=== PATIENT | male | born 1940 | race Caucasian/White ===

== ENCOUNTER 2016-11-18 20:28 | Emergency (ER) | payer OTHER ==
[2016-11-18 22:08] LABS: MANUAL DIFF NEEDED? NO
[2016-11-18 22:25] LABS: AGAP 13; ALBUMIN 3.6 g/dL (3.5-5.0); ALKALINE PHOSPHATASE 78 U/L (32-122); BUN 13 mg/dL (8-22); CALCIUM 9.1 mg/dL (8.8-10.2); CHLORIDE 103 mmol/L (98-107); CK PROFILE 66 U/L (24-204); COSMO 281; GOT 19 U/L (10-34); GPT 23 U/L (10-44); POTASSIUM 4.1 mmol/L (3.5-5.1); SODIUM 141 mmol/L (136-145); TCO2 25 mmol/L (25-35); TOTAL BILIRUBIN 0.51 mg/dL (0.20-1.00); TOTAL PROTEIN 6.3 g/dL (6.3-8.3)
[2016-11-18 22:31] LABS: BASO% 0.5 % (0.0-0.8); EOS# 0.15 X1000 (0.0-0.7); EOS% 1.9 % (0.0-10.0); HEMATOCRIT 46.6 % (42.0-52.0); HEMOGLOBIN 15.8 g/dL (14.0-18.0); LYMPH# 1.76 X1000 (1.2-3.4); LYMPH% 22.5 % (20.5-51.1); MCHC 33.9 g/dL (33-37); MCV 88.4 FL (81-99); MONO% 10.2 % (1.7-9.3); MPV 10.4 FL (7.4-10.4); NEUT% 64.9 % (42.2-75.2); PLT 214 X1000 (130-400); RBC 5.27 XMIL (4.7-6.1)
--- NOTE | 2016-11-18 22:32 | PROVIDER DOCUMENTATION ---
HPI-Syncope/Dizziness - General Source: patient - History of Present Illness-Syncope/Dizzy Onset/Duration: reports: this evening Timing: reports: gone now Loss of Consciousness: no loss of consciousness Location of injury. (If syncope resulted in an injury.): reports: none Current Symptoms: reports: none/feels normal Recently Seen Here or By Another Healthcare Provider: No - Dizziness Severity in ED: reports: mild Dizziness Related Current/Associated Symptoms: reports: dizzy, other (shortness of breath) Any recent trauma/injury?: reports: none Patient usually:: reports: walks without assistance <Sobeida Brown - Last Filed: 11/18/16 23:38> <Baldemar Pompa - Last Filed: 11/18/16 23:53> - General Chief Complaint: Dizziness Stated Complaint: DIZZY, HEART RACING Time Seen by Provider: 11/18/16 21:00 Allergies/Adverse Reactions: Patient Allergies Allergy/AdvReac Type Severity Reaction Status Date / Time No Known Allergies Allergy Verified 11/18/16 21:21 Home Medications: Home Medication List Medication Instructions Recorded Confirmed Last Taken Type Aspirin 81 mg PO DAILY 07/20/16 11/18/16 11/18/16 History Metoprolol [Lopressor] 50 mg PO DAILY 07/20/16 11/18/16 11/18/16 History Rivaroxaban [Xarelto] 20 mg PO WSUPPER #30 tablet 07/21/16 11/18/16 11/18/16 Rx Folic Acid 1 mg PO DAILY #30 tablet 07/22/16 11/18/16 11/18/16 Rx - History of Present Illness-Syncope/Dizzy Nature of Presenting Problem: 76 year old M presents to the ED with a cc of dizziness, short of breath, and feeling flushed. PT states that he has a hx of blood clots moving from his legs to his lungs. PT states that tonight felt similar. PT states that he is taking Xarelto 20mg daily. (Sobeida Brown) Review of Systems - Adult - REVIEW OF SYSTEMS - ADULT Constitutional: denies: chills, fever Eyes: reports: no symptoms reported Ears, Nose, Mouth & Throat: reports: no symptoms reported Cardiovascular: denies: chest pain, palpitations Respiratory: reports: shortness of breath. denies: cough Gastrointestinal: denies: abdominal pain, nausea, vomiting Genitourinary: denies: dysuria, hematuria Musculoskeletal: denies: bone pain, muscle aches, muscle weakness Integumentary: reports: no symptoms reported Neurological: reports: dizziness/vertigo. denies: headache/migraines Psychiatric: reports: no symptoms reported Endocrine: reports: no symptoms reported Hematologic/Lymphatic: reports: no symptoms reported Allergic/Immunologic: reports: no symptoms reported All Other Systems: Reviewed and Negative <Sobeida Brown - Last Filed: 11/18/16 23:38> Past History - Adult - PAST MEDICAL HISTORY-ADULT Review of Records: reports: Nursing Assessment Review, Medications Reviewed Major Childhood Illnesses: reports: denies history Cardiovascular: reports: blood clots (PE), CAD Respiratory: reports: denies history Gastrointestinal: reports: denies history Obstetrical/Gynecological: reports: denies history Genitourinary: reports: denies history Musculoskeletal: reports: denies history Neurological: reports: denies history Endocrine/Immune: reports: denies history Other Conditions: reports: denies history - PRIOR SURGERIES/PROCEDURES Surgical/Procedure History: reports: cardiac stent, orthopedic (extremity) - IMMUNIZATION STATUS Childhood Immunizations: See Nurse Assessment Flu Vaccine: See Nurse Assessment - FAMILY HISTORY Family History: reviewed, not pertinent - SOCIAL HISTORY Smoking: non-smoker Substance Use: none/never Alcohol Use Frequency: never <Sobeida Brown - Last Filed: 11/18/16 23:38> Physical Exam-General - PHYSICAL EXAM-ADULT Initial Vital Signs Reviewed: Yes - CONSTITUTIONAL General Appearance: appears well, alert, no apparent distress - RESPIRATORY Respiratory: chest non-tender, lungs clear, normal breath sounds - CARDIOVASCULAR Cardiovascular: normal peripheral pulses, regular rate, rhythm, no edema - GASTROINTESTINAL (ABDOMEN) Abdominal Exam: non tender, soft - MUSCULOSKELETAL Extremity: normal inspection - SKIN Integumentary: normal color, normal turgor, warm/dry - PSYCHIATRIC Psych/Mental Status: normal mood/affect, normal thought content, normal thought process, oriented x 3 <Sobeida Brown - Last Filed: 11/18/16 23:38> Progress - EKG 1 Time of EKG reading by physician:: 20:36 EKG Read and Signed by:: Baldemar Pompa EKG Interpretation (*Must complete 3 of following elements*): Normal Rate: 83 Rhythm: NSR Falls: normal - XRAY 1 XRAY Study: Chest Impression: Normal XRAY Interpretation: Normal: Dr. Pompa-FÁTIMA CURRY <Sobeida Brown - Last Filed: 11/18/16 23:38> <Baldemar Pompa - Last Filed: 11/18/16 23:53> - PLAN OF CARE/RESULTS Progress/Plan/Lab Results: plan of care: imaging, labs, EKG Orders Category Date Time Status Cardiac Monitoring DIRECTED Care 11/18/16 22:04 Inactive CHEST-2 VIEWS [RAD] Stat Exams 11/18/16 22:03 Taken CBC WITH DIFF [HEME] Stat Lab 11/18/16 21:28 Completed CK PROFILE [SP CHEM] Stat Lab 11/18/16 21:28 Completed COMPREHENSIVE METABOLIC PANEL [CHEM] Stat Lab 11/18/16 21:28 Completed D-DIMER [CHEM] Stat Lab 11/18/16 21:28 Completed TROPONIN T Stat Lab 11/18/16 21:28 Completed Pulse Oximetry Stat Oth 11/18/16 22:03 Active EKG [EKG] Stat Ther 11/18/16 20:31 Ordered Laboratory Tests 11/18/16 11/18/16 11/18/16 21:28 21:28 21:28 WBC RBC Hgb Hct MCV MCH MCHC RDW Std Deviation Plt Count MPV Immature Gran % (Auto) Neut % (Auto) Lymph % (Auto) Rock % (Auto) Eos % (Auto) Baso % (Auto) Immature Gran # (Auto) Neut # (Auto) Lymph # (Auto) Rock # (Auto) Eos # (Auto) Baso # (Auto) D-Dimer < 0.10 Sodium 141 Potassium 4.1 Chloride 103 Carbon Dioxide 25 Anion Gap 13 BUN 13 Creatinine 0.9 Estimated GFR/1.73 m2 > 60 BUN/Creatinine Ratio 14 Glucose 100 Calculated Osmolality 281 Calcium 9.1 Total Bilirubin 0.51 AST 19 ALT 23 Alkaline Phosphatase 78 Creatine Kinase 66 Troponin T < 0.010 Total Protein 6.3 Albumin 3.6 Globulin 2.7 Albumin/Globulin Ratio 1.3 11/18/16 21:28 WBC 7.82 RBC 5.27 Hgb 15.8 Hct 46.6 MCV 88.4 MCH 30.0 MCHC 33.9 RDW Std Deviation 13.6 Plt Count 214 MPV 10.4 Immature Gran % (Auto) 0.0 Neut % (Auto) 64.9 Lymph % (Auto) 22.5 Rock % (Auto) 10.2 H Eos % (Auto) 1.9 Baso % (Auto) 0.5 Immature Gran # (Auto) 0.00 Neut # (Auto) 5.07 Lymph # (Auto) 1.76 Rock # (Auto) 0.80 H Eos # (Auto) 0.15 Baso # (Auto) 0.04 D-Dimer Sodium Potassium Chloride Carbon Dioxide Anion Gap BUN Creatinine Estimated GFR/1.73 m2 BUN/Creatinine Ratio Glucose Calculated Osmolality Calcium Total Bilirubin AST ALT Alkaline Phosphatase Creatine Kinase Troponin T Total Protein Albumin Globulin Albumin/Globulin Ratio Vital Signs - 24 hr 11/18/16 11/18/16 11/18/16 20:35 21:46 23:02 Temperature 98.5 F Pulse Rate 82 74 Respiratory 18 20 Rate Blood Pressure 172/80 176/90 147/94 O2 Sat by Pulse 99 93 L 95 Oximetry Pt given results and will be d/c home w/o rx to follow up with PCP. Pt verbally understood instructions. PT remained clinically stable throughout the course of the ED stay and will return if symptoms worsen. (Sobeida Brown) Departure <Sobeida Brown - Last Filed: 11/18/16 23:38> - Departure Time of Disposition Order: 23:52 Certified Medical Emergency: Emergent <Baldemar Pompa - Last Filed: 11/18/16 23:53> - Departure DIAGNOSIS: Dizziness Disposition: HOME 01 Condition: Good Attestation - Scribe Verification/Attestation Scribe:: Sobeida Brown Acting as Scribe for:: Baldemar Pompa Scribe documention review:: This chart was documented by a scribe and accurately reflects the service the provider performed and the decisions made by the provider. <Sobeida Brown - Last Filed: 11/18/16 23:38> Physician Attestation
[2016-11-19 00:08] VITALS: BP 170/92
--- NOTE | 2016-11-19 06:02 | EKG Report ---
Test Performed on : 11/18/2016 8:36:56 PM Test Reason : PALP Blood Pressure : / mmHG Vent. Rate : 083 BPM Atrial Rate : 083 BPM P-R Int : 192 ms QRS Dur : 074 ms QT Int : 376 ms P-R-T Axes : 011 017 019 degrees QTc Int : 441 ms Normal sinus rhythm. Normal ECG When compared with ECG of 20-JUL-2016 22:01, Incomplete right bundle branch block is no longer present Unconfirmed Result
--- NOTE | 2016-11-19 06:21 | EKG Report ---
Test Performed on : 11/18/2016 8:58:29 PM Test Reason : PALP Blood Pressure : / mmHG Vent. Rate : 105 BPM Atrial Rate : 122 BPM P-R Int : 000 ms QRS Dur : 080 ms QT Int : 350 ms P-R-T Axes : 000 064 -37 degrees QTc Int : 462 ms Atrial fibrillation. with rapid ventricular response. Voltage criteria for left ventricular hypertrophy ST & T wave abnormality, consider inferior ischemia Abnormal ECG When compared with ECG of 18-NOV-2016 20:36, (Unconfirmed) Atrial fibrillation. has replaced Sinus rhythm. T wave inversion more evident in Inferior leads T wave inversion now evident in Anterior leads Unconfirmed Result
--- NOTE | 2016-11-19 08:23 | Diag Imaging Result Document ---
PROCEDURE NAME: CHEST-2 VIEWS - 11/18/2016 2 VIEWS OF THE CHEST: FINDINGS: The inspiration is suboptimal. Compared to 07/20/2016 there has been no significant change in the appearance of the chest. IMPRESSION: Stable chest.
== END 2016-11-19 00:08 | disposition home or self-care (01) ==
LOC: ED 20:28
DX: R42 Dizziness and giddiness (principal); R06.02 Shortness of breath; Z86.711 Personal history of pulmonary embolism; I25.10 Atherosclerotic heart disease of native coronary artery without angina pectoris; Z95.5 Presence of coronary angioplasty implant and graft; Z79.899 Other long term (current) drug therapy; Z79.01 Long term (current) use of anticoagulants; Z79.82 Long term (current) use of aspirin
CPT/HCPCS: 71020; 80053; 82550; 82948; 84484; 85025; 85379; 93005

== ENCOUNTER 2019-06-27 05:13 | Day surgery (SDC) ==
[2019-06-19 10:49] LABS: HEMATOCRIT 49.6 % (42.0-52.0); HEMOGLOBIN 16.2 g/dL (14.0-18.0); MCH 29.6 PG (27-31); MCHC 32.7 g/dL (33-37); MCV 90.5 FL (81-99); MPV 10.2 FL (7.4-10.4); RBC 5.48 XMIL (4.7-6.1); RDW 13.9 % (11.5-14.5); WBC 7.14 X1000 (4.8-10.8)
[2019-06-19 11:08] LABS: AGAP 10; BUN 14 mg/dL (8-22); CALCIUM 9.4 mg/dL (8.8-10.2); CHLORIDE 104 mmol/L (98-107); COSMO 280; ESTIMATED GFR > 60; GLUCOSE 100 mg/dL (70-104); POTASSIUM 4.4 mmol/L (3.5-5.1); SODIUM 140 mmol/L (136-145); TCO2 26 mmol/L (25-35)
[2019-06-27] MEDS ORDERED: LR 1,000 ML ONE ×3 (05:40→12:42)
[2019-06-27] MEDS ORDERED: KEFZOL 1 GM/D5W 2 GM/100 ML IVPB ONE (05:40)
[2019-06-27] MEDS ORDERED: LOPRESSOR PO ONE (05:43)
[2019-06-27] MEDS ORDERED: LOPRESSOR ONE (05:52)
[2019-06-27] MEDS ORDERED: FENTANYL ONE (06:22)
[2019-06-27] MEDS ORDERED: DIPRIVAN 1% ONE (06:22)
[2019-06-27] MEDS ORDERED: XYLOCAINE-MPF 2% ONE (06:28)
[2019-06-27] MEDS ORDERED: NORCURON ONE ×3 (06:28→09:10)
[2019-06-27] MEDS ORDERED: ZOFRAN ONE (06:28)
[2019-06-27] MEDS ORDERED: STERILE WATER INJ. ONE (06:28)
[2019-06-27] MEDS ORDERED: NEO-SYNEPHRINE ONE (06:28)
[2019-06-27] MEDS ORDERED: DECADRON ONE (06:28)
[2019-06-27] MEDS ORDERED: SENSORCAINE 0.25%/EPI 1:200,000 ONE (06:33)
[2019-06-27] MEDS ORDERED: B & O 16A SUPP ONE (06:34)
[2019-06-27] MEDS ORDERED: ATROPINE ONE (07:13)
[2019-06-27 08:17] LABS: URINE SOURCE CATH
[2019-06-27 08:26] LABS: BILIRUBIN URINE NEGATIVE (NEGATIVE); BLOOD URINE NEGATIVE (NEGATIVE); COLOR YELLOW; GLUCOSE URINE NEGATIVE (NEGATIVE); KETONE URINE NEGATIVE (NEGATIVE); LEUKOCYTES URINE NEGATIVE (NEGATIVE); NITRITE URINE NEGATIVE (NEGATIVE); PH URINE 5.5; PROTEIN URINE NEGATIVE (NEGATIVE); TURBIDITY URINE CLEAR (CLEAR); UROBILINOGEN URINE NORMAL (NORMAL)
[2019-06-27 08:28] LABS: UR EPITHELIAL CELLS <10 /HPF (<10); URINE BACTERIA NEGATIVE /HPF; URINE RBC <10 /HPF (<10); URINE WBC <10 /HPF (<10)
[2019-06-27] MEDS: DILAUDID ONE ×2 (13:00→13:03)
[2019-06-27] MEDS ORDERED: MORPHINE IV PRN (14:30)
[2019-06-27] MEDS ORDERED: NORCO-7.5 PO PRN (14:30)
[2019-06-27] MEDS ORDERED: ZOFRAN IV PRN (14:30)
[2019-06-27] MEDS ORDERED: LR 1,000 ML IV SCH (14:30)
[2019-06-27] MEDS ORDERED: LABETALOL IV PRN (14:30)
[2019-06-27] MEDS: KEFZOL 1 GM/D5W 1 GM/50 ML IVPB IV SCH ×2 (15:34→22:08)
[2019-06-27] MEDS: COLACE PO SCH (22:07)
[2019-06-28] MEDS: LR 1,000 ML IV SCH ×2 (00:16→06:19)
[2019-06-28] MEDS: PERIDEX MT SCH ×2 (00:17→08:27)
[2019-06-28] MEDS: KEFZOL 1 GM/D5W 1 GM/50 ML IVPB IV SCH (06:06)
[2019-06-28] MEDS ORDERED: LOVENOX SUBQ ONE (06:54)
[2019-06-28 07:10] LABS: HEMATOCRIT 43.5 % (42.0-52.0); HEMOGLOBIN 14.2 g/dL (14.0-18.0); MCH 30.1 PG (27-31); MCHC 32.6 g/dL (33-37); MCV 92.4 FL (81-99); MPV 10.4 FL (7.4-10.4); RBC 4.71 XMIL (4.7-6.1); RDW 13.9 % (11.5-14.5); WBC 10.15 X1000 (4.8-10.8)
--- NOTE | 2019-06-28 07:32 | PROGRESS NOTE ---
DATE: 06/28/2019 SUBJECTIVE: Postoperative day 1 from a robotic-assisted laparoscopic prostatectomy and bilateral pelvic lymph node dissection and urethral suspension. The patient did well overnight. He denies significant pain. He is not taking pain medications. Had good urinary output with clear yellow urine. Denies any nausea. The patient is off oxygen and has been up to the chair. OBJECTIVE: Vital Signs: Temperature 98.5 degrees, heart rate 64, blood pressure 106/57, oxygen 92% on room air. General: No acute distress. Resting comfortably in bed. Alert and oriented x3. Respiratory: Good respiratory effort without audible wheezing or rales. Abdomen: Soft, nontender, nondistended. Genitourinary: No suprapubic tenderness. No CVA tenderness. Urethral catheter in place draining clear yellow urine. Skin: Incisions are well healed with Dermabond present over laparoscopic incisions. A small amount of bruising is seen around the midline incision. ASSESSMENT AND PLAN: Mr. Peacock is a 79-year-old with history of atrial fibrillation and recently diagnosed prostate cancer, status post robotic-assisted laparoscopic prostatectomy with pelvic lymph node dissection and urethral suspension. The patient did well overnight. He has been ambulatory and has good pain control, not taking any pain medication. He has had good urinary output with over 2 L recorded of clear yellow urine. The patient was encouraged to be ambulatory this morning. I will give a dose of Lovenox. Encouraged him to take p.o. intake as tolerated. Continue home medications. We will follow up morning labs. If he does well, could consider discharge later today. cc: Branden Leos MD MTDD
[2019-06-28 07:33] LABS: AGAP 11; BUN 12 mg/dL (8-22); CALCIUM 8.9 mg/dL (8.8-10.2); CHLORIDE 102 mmol/L (98-107); COSMO 274; CREATININE 0.9 mg/dL (0.7-1.2); ESTIMATED GFR > 60; GLUCOSE 101 mg/dL (70-104); POTASSIUM 3.9 mmol/L (3.5-5.1); SODIUM 137 mmol/L (136-145); TCO2 24 mmol/L (25-35)
[2019-06-28 08:11] VITALS: BP 134/63
[2019-06-28] MEDS: COLACE PO SCH (08:27)
[2019-06-28] MEDS ORDERED: FISH OIL CONCENTRATE PO SCH (09:00)
[2019-06-28] MEDS ORDERED: LOPRESSOR PO SCH (09:00)
[2019-06-28] MEDS ORDERED: FOLIC ACID PO SCH (09:00)
[2019-06-28] MEDS ORDERED: PATIENT'S OWN MED OPH SCH (21:00)
--- NOTE | 2019-06-30 12:26 | OPERATIVE NOTE ---
PROCEDURE DATE: 06/27/2019 PREOPERATIVE DIAGNOSIS: High-grade prostate cancer. POSTOPERATIVE DIAGNOSIS: High-grade prostate cancer. PROCEDURE PERFORMED: 1. Robotic-assisted laparoscopic prostatectomy. 2. Bilateral pelvic lymph node dissection. 3. Laparoscopic urethral suspension. SURGEON: Branden Leos MD. KENO WRITER / RUNNER: None. COMPLICATIONS: None. BLOOD LOSS: 350 mL. SPECIMENS REMOVED: 1. Prostate. 2. Seminal vesicles. 3. Vas deferens. 4. Fat overlying the prostate. 5. Bilateral pelvic lymph nodes. ANESTHESIA: General. INDICATIONS FOR PROCEDURE: Mr. Peacock is a 79-year-old who was recently found to have elevated PSA and underwent a transrectal ultrasound guided prostate biopsy, which returned with several cores of high-grade cancer including 4+4 in 2 cores as well as multiple cores of 4+3 and 3+4. I had a long discussion with the patient regarding his age as well as comorbidities and recently diagnosed prostate cancer. The patient desired undergoing surgical intervention to remove his prostate. Told him he is at high risk for seminal vesicle involvement as well as lymph node involvement. The patient had a workup with bone scan and CT scan which showed no obvious metastatic lesions on the bone scan and only degenerative changes on his CT scan. After thorough discussion regarding the risks of surgery including bleeding, infection, blood clots, damage to surrounding structures including rectum, colon, small bowel, bladder, and vasculature, need for secondary procedures, as well as postop urinary incontinence and erectile dysfunction. The patient elected to proceed. DESCRIPTION OF PROCEDURE: After informed consent was obtained, the patient was brought to the operating room, placed on the operating table in supine position. The patient underwent endotracheal intubation and received preoperative antibiotics. The patient was then placed into a dorsal lithotomy position, was prepped and draped in the usual sterile fashion. A preoperative time- out was performed with all parties in agreement, including anesthesia, surgical and nursing staff. At which point an 18-Colombian Gallardo catheter was inserted through the urethra and into the bladder. Clear yellow urine returned and a sample was sent for urinalysis. The urethral catheter balloon was inflated with 15 mL of sterile water. Towel clamps were placed in the area above the umbilicus and a Veress needle was then inserted and a Saline drop test was then performed which showed rapid drainage with no succus or blood returning on aspiration. Insufflation was then started at low pressure and increased up to high pressure and the abdomen inflated up to 15 mmHg. At which point trocar sites were then marked for a standard prostatectomy, marking camera trocar in the midline superior to the umbilicus. This was infiltrated with 0.25% Marcaine and an incision was made through the skin and a 12 mm trocar was then inserted. Using the camera, the abdomen was inspected which showed no evidence of any trauma, no evidence of any adhesions within the likely trocar sites. Each of the trocar sites were then marked and then infiltrated with Marcaine and then the robotic trocars were inserted, 2 on the right, 1 on the left and an teacher's assistant 12 port was inserted in the upper left abdomen. Once this was completed, the patient was then placed into steep Trendelenburg and the robotic platform was then docked, at which point I returned to the console and adhesions involving the sigmoid colon were visualized and excised sharply with scissors, allowing freeing the sigmoid colon. Once freely mobile, attention was then placed to performing a posterior dissection. I made an incision approximately 2 cm above the rectum in the perineum and identified and isolated the bilateral vas deferens. Once these were visualized and dissected out, these were cut and then the seminal vesicles bilaterally were dissected to seminal vesicle tips. Caution was used with limited cautery as the seminal vesicles were neurovascular bundles bilaterally. Once this was preformed bilaterally, attention was placed to Denonvilliers fascia which was excised sharply through until perirectal fat was seen. Once this was completed, and we were dissected down as far as we could toward the apex. We then moved to dropping our bladder. On inspection of the anterior abdominal wall, there was a left-sided fat-containing hernia visualized. Starting on the right side, I isolated the medial umbilical ligament and dissected to toward the pubic rami. Once I dissected this inferiorly, I carried this from the right side to the left side, dropping the bladder and able to remove the fat-containing hernia from the inguinal canal. Once the space of Retzius was completely entered into, the bladder was completely dropped, fat was then cleared off of the endopelvic fascia and the prostate. This was sent as a separate specimen for analysis. Next, the endopelvic fascia was then excised sharply following the contour of the prostate toward the apex. Puboprostatic ligaments were then sharply divided and the superficial dorsal vein complex was then controlled with bipolar electrocautery. Dorsal vein complex was then visualized and a 0 V-Loc suture was used to ligate this in a [id number] fashion with anterior periosteal suturing for stability. At which point, our attention was then placed to dissecting out the bladder neck. This was identified by gently tugging on the Gallardo catheter balloon in place and using monopolar cautery, this was used to incise the bladder neck through bladder fibers and into the bladder. The Gallardo catheter was then brought out of the field with the 4th arm and then used to place anterior traction on the prostate. This allowed for good visualization of the posterior bladder neck. A small prostatic median lobe was seen. Bilateral ureteral orifices were seen far away. An incision was made in the bladder neck and made circumferentially and the prostate was then further elevated anterior with the 4th arm and a plane was developed between the prostate and the bladder. Once we were able to dissect all the way down to the vas deferens and seminal vesicles, we periodically inspected the bladder to ensure a good depth of incision. Once the vas deferens and seminal vesicles were seen posteriorly, these were brought up into view and were dissected out of the neurovascular bundles and using hemoclips, began on the left side and were able to excise, create a small window for nerve spare. I attempted to peel off the neurovascular bundle as well as the nerves on the lateral portion of the prostate. The patient had bilateral high-volume aggressive cancer so preformed a limited nerve spare for him. Once the left side was adequately mobilized, carrying it down toward the apex. Attention was then placed to the right side and a similar procedure was performed. No obvious adherent neurovascular bundle was seen to the prostate and a good plane was seen both posterior and lateral. The rectum was visualized and far away from our surgical plane. Once we were able to control the neurovascular bundles, attention was then placed to dissecting apically. Dorsal vein was divided using electrocautery and the periurethral tissue was then sharply visualized and excised once a good urethral length was obtained. The prostate seemed to dissect well off of the anterior urethra and all periurethral tissue was able to be preserved and then sharply excised to create a good urethral length. The posterior prostate seemed to involve a portion of the urethra but was able to easily be excised back with a good margin. This allowed for good mobility of the prostate and this was able to be completely dissected off. The posterior fascia was then excised and the prostate was freed from the overlying tissue. This was placed into an EndoCatch bag. The field was then irrigated and hemostasis appeared to be excellent. No obvious bleeding was seen from the dorsal vein or neurovascular bundles. Attention was then placed to perform bilateral pelvic lymph node dissection. I began on the right side. We were able to excise a significant amount of lymphatic tissues overlying the external iliac artery and vein and carried this toward anterior abdominal wall and removed nodes of Holt as well as dissected down to the obturator complex. The obturator nerve and artery and vein were all easily visualized on the right side and uninvolved. We were able to excise a large amount of tissue from this side and carried it all the way to the perivesicular fat medially. This was then obtained and sent for analysis. Following this, attention was placed to the left side. Several nodes were seen on this side and each of them were removed. A more extensive dissection was performed due to visible nodes that were seen both in between the iliac vein and artery as well as in the obturator fossa. The obturator nerve, artery and vein again were seen easily on the left side and were preserved. Once all this tissues was then dissected out, it was sent as well as the left-sided specimen. Within each fossa bilaterally, Surgicel was then inserted and pressure was decreased down to 3 with no active bleeding or drainage from either side. Following this, attention was then placed to performing the anastomosis. I began by using a 3-0 V-Loc suture to perform a Dileep stitch to approximate the perivesicular to the periurethral tissue in a running fashion and saved the sutures for later laparoscopic urethral suspension. We then performed a formal vesicourethral anastomosis using two 3-0 running V-Loc sutures in a clockwise and counterclockwise position and crossing the midline and tying the sutures at this point. A good urethral length was previously obtained and the bladder neck came together very well, at which point a new 18-Colombian Gallardo catheter was inserted and tested up to 240 mL with no evidence of leak. It appeared to be watertight and that the bladder filled and drained appropriately. Once the bladder was completely distended and drained, attention was then placed to performing the laparoscopic urethral suspension, performing this by threading the needle through the pubic periosteum. Good support was obtained of the urethra bilaterally. All areas of fluid were drained from the pelvis. Again, the pressure was decreased down to 3 mmHg and no active bleeding was seen. all of our robotic instruments were removed and the robot was undocked. We then removed our specimen by extending the supraumbilical incision to allow for removal of the EndoCatch bag. The wound was then copiously irrigated and a 0 PDS suture was then used to close the supraumbilical incision and a 0 Vicryl was used to close the fascia of the 12 mm incision port. Each of the incisions was then closed using a 4-0 Monocryl suture in subcuticular fashion and Covidien skin glue was then applied. The catheter was then placed to gravity drainage with a StatLock and the patient received a penile suppository, at which point the patient was then extubated, was awoken and was taken to recovery in stable condition. The patient will be transferred to PACU and subsequently to the floor for observation overnight. cc: MD SHELTON Cano
== END 2019-06-28 11:26 | disposition home or self-care (01) ==
LOC: 4N 05:13 → OPS 05:13 → 4N 09:22 → OPS 06-28 11:26
PROVIDERS: ATTEND Urology

== ENCOUNTER 2019-06-30 02:50 | Inpatient (IN) ==
--- NOTE | 2019-06-30 03:42 | PROVIDER DOCUMENTATION ---
HPI-General Adult - General Chief Complaint: Shortness of Breath Stated Complaint: POST OP/OXYGEN LOW/HEART RATE HIGH Time Seen by Provider: 06/30/19 03:31 Source: patient Allergies/Adverse Reactions: Patient Allergies Allergy/AdvReac Type Severity Reaction Status Date / Time Enbbugo-Lbp-Qzg Reductase AdvReac leg cramps Verified 06/30/19 03:27 Inhibitor Home Medications: Home Medication List Medication Instructions Recorded Confirmed Last Taken Type Aspirin 81 mg PO DAILY 07/20/16 06/30/19 06/23/19 History Metoprolol [Lopressor] 50 mg PO DAILY 07/20/16 06/30/19 06/27/19 05:41 History Folic Acid 1 mg PO DAILY #30 tablet 07/22/16 06/30/19 06/26/19 08:00 Rx Cyanocobalamin (Vitamin B-12) 1,000 mcg PO DAILY 06/19/19 06/30/19 06/26/19 08:00 History [Vitamin B-12] Jay-3/Dha/Epa/Fish Oil [Fish Oil 1 ea PO DAILY 06/19/19 06/30/19 06/23/19 History 1,400 mg Softgel] Rivaroxaban [Xarelto] 10 mg PO WSUPPER 06/19/19 06/30/19 06/23/19 History Tafluprost/Pf [Zioptan 0.0015% Eye 1 ea OPHTHALMIC (EYE) DAILY 06/19/19 06/27/19 06/26/19 08:00 History Drops] Docusate Sodium [Colace] 100 mg PO BID cap 06/28/19 06/30/19 Unknown Rx - History of Present Illness -Gen Adult Nature of Presenting Problems: Patient is a 79 year old white male with history of DVT and PE, just stopped X arelto 1 week ago in order to have laparoscopic prostatectomy 4 days ago. CUrrently has everett cath in place. Patient hour complains of increased SOB,diffuse abdominal pain, and elevated heart rate since prostatectomy 4 days ago. . Review of Systems - Adult - REVIEW OF SYSTEMS - ADULT Constitutional: denies: chills, fever Eyes: reports: no symptoms reported Ears, Nose, Mouth & Throat: reports: no symptoms reported, ear discharge Cardiovascular: reports: no symptoms reported, see HPI Respiratory: reports: see HPI, shortness of breath Gastrointestinal: reports: no symptoms reported, see HPI Genitourinary: reports: see HPI, hematuria Musculoskeletal: reports: no symptoms reported Integumentary: reports: no symptoms reported Neurological: reports: no symptoms reported Psychiatric: reports: anxiety Allergic/Immunologic: reports: no symptoms reported, see HPI Past History - Adult - PAST MEDICAL HISTORY-ADULT Review of Records: reports: Old Records Reviewed, Nursing Assessment Review, Medications Reviewed, Social history reviewed & non-contributory. Major Childhood Illnesses: reports: denies history Cardiovascular: reports: blood clots (PE), CAD Respiratory: reports: denies history Gastrointestinal: reports: denies history Obstetrical/Gynecological: reports: denies history Genitourinary: reports: denies history Musculoskeletal: reports: denies history Neurological: reports: denies history Endocrine/Immune: reports: denies history Other Conditions: reports: denies history - PRIOR SURGERIES/PROCEDURES Surgical/Procedure History: reports: cardiac stent, orthopedic (extremity) - IMMUNIZATION STATUS Childhood Immunizations: See Nurse Assessment Flu Vaccine: See Nurse Assessment - FAMILY HISTORY Family History: reviewed, not pertinent Physical Exam-General - CONSTITUTIONAL General Appearance: alert, no apparent distress, obese - EYES Eyes: scleral icterus (clear) - HEAD, EARS, NOSE, MOUTH & THROAT HENMT: normocephalic/atraumatic, moist mucous membranes, normal ENT inspection, TMs normal, pharynx normal, angioedema - NECK Neck: full range of motion - RESPIRATORY Respiratory: lungs clear, normal breath sounds, no respiratory distress - CARDIOVASCULAR Cardiovascular: tachycardia - GASTROINTESTINAL (ABDOMEN) Abdominal Exam: soft, tenderness (vague tenderness with healing surgical wou). negative: guarding, rebound - LYMPHATIC Lymphatic: no adenopathy - MUSCULOSKELETAL Back Exam: normal inspection, no CVA tenderness Progress - PLAN OF CARE/RESULTS Progress/Plan/Lab Results: Vital Signs - 8 hr 06/30/19 03:17 Temperature 97.7 F Pulse Rate 117 H Respiratory Rate 23 Blood Pressure 123/83 O2 Sat by Pulse Oximetry 84 L Orders Category Date Time Status Cardiac Monitoring DIRECTED Care 06/30/19 03:24 Active IV Insertion ORDERED Care 06/30/19 03:24 Active Notify MD of + Sepsis Screen NOW Care 06/30/19 03:24 Active Notify Physician As Ordered Care 06/30/19 03:24 Active CHEST-1 VIEW [RAD] Stat Exams 06/30/19 03:[address] ABD/PELVIS W/IV CONT ONLY [CT] Stat Exams 06/30/19 03:39 Ordered CTA [CT ANGIOGRM PULMONARY ARTERIES] [CT] Stat Exams 06/30/19 03:39 Ordered BLOOD CULTURE [BLDCUL] Stat Lab 06/30/19 03:24 Uncollected CBC WITH DIFF [HEME] Stat Lab 06/30/19 03:24 Uncollected CK PROFILE [SP CHEM] Stat Lab 06/30/19 03:24 Uncollected COMPREHENSIVE METABOLIC PANEL [CHEM] Stat Lab 06/30/19 03:24 Uncollected D-DIMER [COAG] Stat Lab 06/30/19 03:31 Uncollected LACTATE, PLASMA [CHEM] Lab 06/30/19 03:30 Uncollected LACTATE, PLASMA [CHEM] Lab 06/30/19 06:30 Uncollected LACTATE, PLASMA [CHEM] Lab 06/30/19 09:30 Uncollected PROTIME WITH INR [COAG] Stat Lab 06/30/19 03:24 Uncollected PTT [COAG] Stat Lab 06/30/19 03:24 Uncollected TROPONIN T Stat Lab 06/30/19 03:24 Uncollected URINALYSIS W/POSS RFLX CULT [URINALYSIS] Stat Lab 06/30/19 03:24 Uncollected Oxygen Device Stat Oth 06/30/19 03:24 Active EKG [EKG] Stat Ther 06/30/19 02:52 Ordered Result Diagrams: 06/30/19 03:46 06/30/19 03:46 - CT/MRI 1 CT Study: Abdomen, Pelvis, Thorax CT Results: multiple pulmonary emboli - CONSULTS/PCP/HOSPITALIST Notification #1 *Consult/PCP/Hospitalist*: Dr. Grant, hospitalist Time Discussed: 06:35 Consult Disposition: Admit Departure - Departure Date of Disposition Decision: 06/30/19 Time of Disposition Decision: 06:41 DIAGNOSIS: Pulmonary embolism, bilateral Disposition: ADMITTED INPATIENT 09 Certified Medical Emergency: Emergent Condition: Stable Referrals and Follow-Ups: Wing Hernandez DO [Primary Care Provider] - - Critical Care Note This patient required my direct & personal management of CC.: Yes Total Time (mins): 181 Critical Care Statement: This patient required my direct personal management to treat or rule out processes, the absence of which, could potentiallly result in sudden, clinically significant life or limb threatening deterioration. Attestation - Physician/ ELOY Attestation Patient care was provided by Advanced Practice Provider:: No The physician spent face to face time with patient:: Yes Advanced Practice Provider documentation review:: Supervising physician onsite and consulted in the evaluation and care of this patient. The physician did have a face to face encounter with the patient.
[2019-06-30 04:09] LABS: BASO# 0.03 X1000 (0.0-0.2); BASO% 0.3 % (0.0-0.8); EOS# 0.06 X1000 (0.0-0.7); EOS% 0.6 % (0.0-10.0); HEMATOCRIT 45.8 % (42.0-52.0); LYMPH% 13.7 % (20.5-51.1); MCH 29.6 PG (27-31); MCHC 32.8 g/dL (33-37); MCV 90.5 FL (81-99); MONO# 0.88 X1000 (0.11-0.59); MONO% 8.6 % (1.7-9.3); MPV 10.4 FL (7.4-10.4); NEUT# 7.85 X1000 (1.4-6.5); NEUT% 76.8 % (42.2-75.2); PLT 118 X1000 (130-400); RBC 5.06 XMIL (4.7-6.1); RDW 13.7 % (11.5-14.5); WBC 10.22 X1000 (4.8-10.8)
[2019-06-30 04:22] LABS: INR 1.21; PROTIME 15.5 Seconds (11.0-16.0)
[2019-06-30 04:23] LABS: PTT 33.9 Seconds (22.3-41.8)
[2019-06-30 04:28] LABS: AGAP 14; ALB/GLOB RATIO 1.3; ALBUMIN 3.6 g/dL (3.5-5.0); ALKALINE PHOSPHATASE 78 U/L (32-122); BUN 9 mg/dL (8-22); CALCIUM 9.1 mg/dL (8.8-10.2); CHLORIDE 103 mmol/L (98-107); CK PROFILE 194 U/L (24-204); COSMO 284; ESTIMATED GFR > 60; GLUCOSE 135 mg/dL (70-104); GOT 19 U/L (10-34); GPT 11 U/L (10-44); POTASSIUM 4.2 mmol/L (3.5-5.1); SODIUM 142 mmol/L (136-145); TCO2 25 mmol/L (25-35); TOTAL BILIRUBIN 0.96 mg/dL (0.20-1.00); TOTAL PROTEIN 6.3 g/dL (6.3-8.3)
--- NOTE | 2019-06-30 04:35 | EKG Report ---
Test Performed on : 06/30/2019 02:59:32 AM Test Reason : high heart rate Blood Pressure : / mmHG Vent. Rate : 107 BPM Atrial Rate : 107 BPM P-R Int : 180 ms QRS Dur : 088 ms QT Int : 338 ms P-R-T Axes : 016 050 -03 degrees QTc Int : 451 ms Sinus tachycardia. Possible Left atrial enlargement Nonspecific T wave abnormality Abnormal ECG When compared with ECG of 30-MAY-2018 03:22, CA interval has decreased Vent. rate has increased BY 52 BPM T wave inversion now evident in Anterior leads Unconfirmed Result
[2019-06-30 04:44] LABS: URINE SOURCE CLEAN CATCH
[2019-06-30 04:55] LABS: BILIRUBIN URINE NEGATIVE (NEGATIVE); BLOOD URINE MODERATE (NEGATIVE); COLOR YELLOW; GLUCOSE URINE NEGATIVE (NEGATIVE); KETONE URINE 20 mg/dL (NEGATIVE); LEUKOCYTES URINE SMALL (NEGATIVE); NITRITE URINE NEGATIVE (NEGATIVE); PROTEIN URINE 50 mg/dL (NEGATIVE); SP GRAVITY URINE 1.012; TURBIDITY URINE CLEAR (CLEAR); UROBILINOGEN URINE NORMAL (NORMAL)
[2019-06-30 04:57] LABS: UR EPITHELIAL CELLS <10 /HPF (<10); URINE BACTERIA NEGATIVE /HPF; URINE WBC <10 /HPF (<10)
[2019-06-30] MEDS ORDERED: LOVENOX 1 MG/KG SUBQ ONE (06:31)
[2019-06-30] MEDS ORDERED: LOVENOX SUBQ ONE (06:45)
--- NOTE | 2019-06-30 08:01 | Diag Imaging Result Doc PS360 ---
EXAM: CHEST-1 VIEW INDICATION: post-op, low oxygen, tachycardia, sepsis protocol TECHNIQUE: One view COMPARISON: 05/30/2018 FINDINGS: There is evidence of prior granulomatous disease, stable. Inspiration is suboptimal. The lungs are grossly clear, otherwise. There is no discrete pleural fluid collection or pneumothorax. The cardiac silhouette appears prominent, probably, at least in part, due to magnification from AP technique. Central vasculature is unremarkable. IMPRESSION: Low lung volumes and mildly prominent cardiac silhouette. No definite acute pathology, otherwise. Electronically signed by Ortega Maria 06/30/2019 7:59 AM
[2019-06-30] MEDS ORDERED: ZOFRAN IV PRN (08:14)
[2019-06-30] MEDS ORDERED: TYLENOL PO PRN (08:14)
[2019-06-30 08:37] LABS: ALLEN TEST YES; BE 2.6 mmoll (-3.0-3.0); BLOOD TYPE ARTERIAL; HCO3-(ACT) 26.8 mmoll (20.0-26.0); MODALITY VENTIMASK; O2(CT) 19.1 mL/dL (15.0-23.0); O2HB 92.5 % (95.0-99.0); PCO2(98.6) 37 mmHg (35-45); PO2(98.6) 61 mmHg (60-100); SAMPLE BLOOD; SAO2 95.1 % (95.0-100.0); THB 14.7 g/dL (11.5-17.4); pH(98.6) 7.46 (7.35-7.45)
[2019-06-30] MEDS ORDERED: FOLIC ACID PO SCH (09:00)
[2019-06-30] MEDS: COLACE PO SCH ×2 (09:25→21:00)
[2019-06-30] MEDS: TOPROL XL PO SCH (09:25)
[2019-06-30] MEDS: ASPIRIN PO SCH (09:25)
[2019-06-30] MEDS: VITAMIN B-12 PO SCH (10:45)
[2019-06-30] MEDS: FISH OIL CONCENTRATE PO SCH (10:45)
--- NOTE | 2019-06-30 12:18 | Diag Imaging Result Doc PS360 ---
EXAM: CT ABD/PELVIS/PULM ARTERIES 06/30/2019 INDICATION: sob, h/o PE TECHNIQUE: This exam was performed using automated exposure control, adjustment of mA or kV according to patient size, and/or use of iterative reconstruction technique. Thin section axial images through the chest and 3-D MIPS were obtained. Standard imaging through the abdomen and pelvis with coronal reformats were obtained. COMPARISON: CTA chest dated 07/20/[address] abdomen and pelvis dated 05/30/2019 FINDINGS: CTA CHEST: There is extensive motion artifact, which may obscure fine details. However, there are fairly large pulmonary emboli seen in the main pulmonary arteries and extending into the higher order branches. The clot burden appears to be heavy. The right ventricle is mildly enlarged. There is patchy thoracic aortic atherosclerotic calcification but no evidence of aortic dissection or aneurysm. There is no evidence of significant mediastinal or hilar lymphadenopathy. There is a trace left pleural effusion and there is mild bibasilar dependent atelectasis. There are several stable calcifications at the lung bases suggesting prior granulomatous disease. CT ABDOMEN/PELVIS: There is a stable small cyst at the dome of the liver. The liver is unremarkable, otherwise. The gallbladder, spleen, pancreas, adrenal glands, and kidneys are essentially unremarkable. There is a Gallardo catheter in the urinary bladder and the bladder is nondistended. There are postsurgical changes related to a very recent prostatectomy. Postsurgical stranding is seen in the pelvis. There is postsurgical gas is in the ventral pelvic wall. There is mild uncomplicated diverticulosis coli. There are a few loops of small bowel in the mid and upper abdomen exhibiting mild distention and air-fluid levels. These are nonspecific but may represent ileus. The remainder of the GI tract is unremarkable. IMPRESSION: Bilateral acute pulmonary emboli with a heavy clot burden as described. Trace left pleural effusion and bibasilar atelectasis. Postsurgical changes related to a very recent prostatectomy. Other incidental/nonacute findings detailed above. Electronically signed by Ortega Maria 06/30/2019 12:15 PM
--- NOTE | 2019-06-30 12:30 | HISTORY AND PHYSICAL ---
PRIMARY CARE PROVIDER: Dr. Wing Hernandez. CHIEF COMPLAINT: Shortness of breath with fast heart rate. HISTORY OF PRESENT ILLNESS: Mr. Brien Peacock is a 79-year-old, male with a medical history of pulmonary embolism back in 2014 and again in 2016 along with DVT on the right leg. Also history of coronary disease and cardiac stent, hypertension and he has been on Xarelto. According to him he had been off Xarelto for 7 days and had prostatectomy by Dr. Leos on Tuesday which was the 27 of June so he was off Xarelto for a total 7 days. He was supposed to start back today but around 2:30 in the morning he woke up with shortness of breath and felt like his heart was beating fast. He had a home O2 saturation sensor and put it on and noted his O2 saturations while he was in bed was 79-80% and his heart rate was 135. He called his son who was going to bring him here to the hospital at [facility]. He used a walker to go to the door. He rechecked his O2 saturation which was in the mid 80s with a heart rate at 117. He was brought here. Imaging revealed that he has a repeat and bilateral pulmonary emboli with a heavy clot burden. So, he was started on weight based Lovenox. He still has a Gallardo catheter in from surgery on Tuesday and Dr. Leos will be consulted to help manage that while he is here. PAST MEDICAL HISTORY: 1. Pulmonary emboli 2015 again in 2016 along with right DVT on Xarelto, apparently he has been off for 7 days. 2. Coronary artery disease. No IN, positive stent x1. 3. Prostate cancer with prostatectomy. 4. Hypertension. SURGICAL HISTORY: 1. Prostatectomy on 06/27/2019. 2. Tip of his middle finger amputated. 3. Right cataract surgery. SOCIAL HISTORY: Denies smoking, states he chews a Red Man pouch of tobacco about 1 pack a day. States he has been about 3 or 4 years. He was with his 1st from cancer and is retired from [employer] back in his early 60s. FAMILY HISTORY: Mother from hip fracture at 78 but no known medical conditions and father with no known medical conditions. He did have a sister who from lung cancer. No family members are noted to ever have DVTs or pulmonary emboli. ALLERGIES: Statins cause muscle tightness and weakness at the same time. HOME MEDICATIONS: 1. Aspirin 81 mg p.o. daily. 2. Fish oil 1400 mg p.o. daily. 3. Toprol 50 mg p.o. daily. 4. Vitamin B12 1000 mcg p.o. daily. 5. Xarelto, says 10 mg with supper, it should be 20. 6. Eye drops, Zioptan right eye daily. 7. Colace 100 mg p.o. twice daily. 8. Folic acid 1 mg p.o. daily. REVIEW OF SYSTEMS: Fourteen point review of systems are complete and all were negative except for those mentioned above HPI. PHYSICAL EXAMINATION: VITAL SIGNS: Temperature 98 degrees, heart rate 87, respiratory rate 24, blood pressure 141/70, O2 saturation 93% on 50% Venturi mask. GENERAL: Mr. Brien Peacock is a 79-year-old, male. He is in no acute distress. He is able to answer questions appropriately. HEENT: Atraumatic, normocephalic. Pupils equal, round, reactive to light. Extraocular movements intact. Mucous membranes are dry. NECK: Trachea midline. CARDIOVASCULAR: S1, S2. Regular rate and rhythm. No rubs, gallops, murmurs. No lower extremity edema. +2 dorsalis and radial pulses. Negative JVD or carotid bruits. PULMONARY: Clear to auscultation. Bilateral breath sounds. No accessory muscle use or work of breathing noted. He is tolerating 50% Venturi. GI: Soft, nontender, nondistended. Positive bowel sounds x4. EXTREMITIES: Moves all extremities equally. Full range of motion. NEUROLOGIC: A and O x3. Follows commands. Sensory is intact. SKIN: Warm, dry, intact. GENITOURINARY: Gallardo catheter that was present on admission. LABORATORY DATA: White blood cells 10,000, hemoglobin 15, hematocrit 45, and platelet count 118,000. INR is 1.21, PTT is 33.9, D-dimer 0. ABGs pH 7.46, pCO2 37, PO2 61, bicarb 26, base excess 2.6, saturation 92%. Lactate 1.1. Sodium 142, potassium 4.2, BUN 9, creatinine is 1.0, glucose 135, calcium 9.1. Bilirubin 0.96, AST 19, ALT 11, CK 194, troponin 0.067. Albumin 3.6, lactate 1.8 and repeat was 1.1. Urinalysis 50 protein, 20 ketones, moderate blood, small leukocytes, 10 to 20 red blood cells. IMAGING: EKG sinus tachycardia, rate 107, QTc 451. Chest x-ray, low lung volumes. Mildly prominent cardiac silhouette. Abdominal pelvic CTA reports a heavy clot burden. Bilateral pulmonary emboli and prostate changes. ASSESSMENT AND PLAN: 1. Bilateral pulmonary emboli with positive heavy clot burden and acute hypoxemic respiratory failure requiring right now a 50% Venturi mask. He has been started on Lovenox 1 mg/kg q.12 hours. He was on Xarelto but for a surgical procedure of the prostate he has been off of it for 7 days and he was supposed to resume it today but unfortunately during that time frame off, he developed pulmonary emboli. Will also get venous ultrasounds to rule out for any DVT. He has got a history of DVT on the right leg with pulmonary emboli back in 2014 and 2016 and he admits to being sedentary. 2. Prostatectomy secondary to prostate cancer. Presented with Gallardo in place. Dr. Leos did the surgery and we will consult him to manage any kind of management for that. 3. History of CAD but no heart attack. He does have a stent. He denies any chest pain. We will resume home medications for that. 4. Hypertension. Continue metoprolol. 5. Deep venous thrombosis prophylaxis. He is on weight based Lovenox. Dictated by VIOLETTE Witt for Mary Anne Berg MD cc: VIOLETTE Witt MD
--- NOTE | 2019-06-30 15:24 | PULMONOLOGY CONSULTATION ---
DATE: 06/30/2019 REQUESTING PHYSICIAN: Dr. Berg. REASON FOR CONSULTATION: Pulmonary emboli. HISTORY OF PRESENT ILLNESS: Mr. Peacock is a 79-year-old male, with chronic oral tobacco use, nonsmoker, who has been on chronic anticoagulation for recurrent pulmonary emboli. The patient was recently diagnosed with prostate cancer and his anticoagulation was discontinued three days prior to a robotic-assisted prostatectomy on 06/27/2019. He was scheduled to restart his blood thinner today. The patient presented to the emergency room early this morning, with shortness of breath and abdominal pain. He was slightly tachycardic. He was not hypotensive. He underwent CT pulmonary angiogram which revealed bilateral pulmonary emboli with some right ventricular dilation, and his abdomen and pelvis revealed post-prostatectomy changes. The patient has been initiated on anticoagulation. He reports he subjectively feels better. PAST MEDICAL HISTORY/PROBLEM LIST: 1. 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 2. Coronary artery disease, status post stent placement. 3. Status post prostatectomy as per above. 4. Hypertension. SOCIAL HISTORY: Ongoing oral tobacco use. No smoking history. No alcohol use. FAMILY HISTORY: Positive for lung cancer in a sibling, otherwise negative. REVIEW OF SYSTEMS: Negative, except as noted in the HPI. PHYSICAL EXAMINATION: General: A healthy-appearing, white male, resting comfortably, watching TV, and in no distress. No increased work of breathing. Blood pressure 122/67, heart rate 74, respiratory rate 20, oxygen saturation 92% on Venturi mask. HEENT: Pupils are equal and reactive. Oropharynx appears clear. Neck: Supple. Chest: Good air entry bilaterally. Cardiac: Regular rate. Normal S1, normal S2. Abdomen: Soft with appropriate postoperative tenderness. Extremities: Without edema. LABORATORY AND DIAGNOSTIC DATA: CT scan as per HPI. White blood count 10.2, hemoglobin 15.0, platelet count 118,000. Sodium 142, potassium 4.2, chloride 103, bicarbonate 25, BUN 9, creatinine 1.0. IMPRESSION: A 79-year-old with: 1. Recurrent pulmonary emboli. 2. Acute hypoxemic respiratory failure. 3. Prostate cancer, status post prostatectomy. DISCUSSION: A 79-year-old with problems outlined above. He has been initiated on anticoagulation. He has significant clot burden, but does not have any evidence of hypotension. He is no longer tachycardic. If he shows evidence of progressive right heart strain, then either a thrombectomy or an IVC filter would be recommended at that time. PLAN: 1. Continue oxygen for hypoxemic respiratory failure. 2. Continue anticoagulation. I would keep the patient sedentary at least through the weekend. cc: Rudy Sawyer MD
[2019-06-30] MEDS: XOPENEX NEB INH SCH ×4 (16:01→22:59)
[2019-06-30] MEDS: ATROVENT NEB INH SCH ×4 (16:01→22:59)
--- NOTE | 2019-06-30 19:39 | CONSULTATION ---
DATE OF CONSULTATION: 06/30/2019 CHIEF COMPLAINT: Postoperative pulmonary embolism. HISTORY OF PRESENT ILLNESS: Mr. 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 The patient was held Xarelto preoperatively for 3 days and was scheduled to restart his home anticoagulation with Xarelto today. Patient's postoperative course was uncomplicated. Was discharged on postop day 1. The patient called on-call physician last night complaining of shortness of breath and increased heart rate, patient states his heart rate which was 136 bpm and oxygen saturation were in the 80s. He was recommended to proceed to the emergency room. On evaluation in the emergency room he was found to be hypoxemic and tachycardic with oxygen saturations in the 80s and heart rate at 117. A CT chest, abdomen, pelvis was obtained which showed relatively large bilateral pulmonary emboli with heavy clot burden. The patient was admitted to the ICU and started on therapeutic Lovenox injection. The patient denies any shortness of breath on evaluation. Denies any flank or abdominal pain. The patient's labs showed normal renal function and white blood cell count. The patient's catheter has been draining well with clear yellow urine. He states that he was not having issues until he awoken early this morning complained of shortness of breath. The patient was tolerating diet and passing gas. Denies any bowel movement. PAST MEDICAL HISTORY: 1. History of pulmonary emboli 2015 and 2016 on chronic Xarelto. 2. Coronary artery disease status post coronary artery stenting. 3. High-grade prostate cancer status post robotic-assisted laparoscopic prostatectomy on 06/27/2019. 4. Hypertension. PAST SURGICAL HISTORY: 1. Robotic-assisted laparoscopic prostatectomy with pelvic lymph node dissection on 06/27/19. 2. Tip of middle finger amputation. 3. Right cataract surgery. ALLERGIES: Statin. MEDICATION: 1. Aspirin 81 mg p.o. daily. 2. Fish oil. 3. Toprol 50 mg p.o. daily. 4. Vitamin B12. 5. Xarelto 10 mg. 6. Eye drops. 7. Colace 100 mg p.o. daily. 8. Folic acid 1 mg p.o. daily. FAMILY HISTORY: Denies family history of malignancy. SOCIAL HISTORY: Denies tobacco, alcohol, illicit drug use . REVIEW OF SYSTEMS: Performed , all pertinent positives and negatives in HPI. PHYSICAL EXAMINATION: Vital Signs: Temperature 98 degrees, heart rate 75, oxygen saturation 94% on Ventimask, blood pressure 122/71, respiratory rate 28. General: No acute distress resting comfortably in bed. Alert and oriented x3. HEENT: Normocephalic, atraumatic. Pupils equal, round, reactive to light. Neck: Trachea midline with no palpable masses. Cardiovascular: Regular rate and rhythm. No murmurs, rubs or gallops. No evidence lower extremity edema. Pulmonary: Clear to auscultation bilaterally. No increased work of breathing. Ventimask in place. Abdomen: Soft, nontender, nondistended. No palpable masses or hepatosplenomegaly. : No suprapubic tenderness. No CVA tenderness. Urethral catheter in place draining clear yellow urine. Skin: No obvious skin lesions or rashes. Abdominal incisions are well healed with Covidien skin glue present. A small amount of bruising present at midline abdominal incision site. Neurologic: Gross motor and sensory intact. LABS: White blood count 10.2, hemoglobin 15, hematocrit 45.8, platelets 118,000. PT 15.5, INR 1.2, PTT 33.9, D-dimer 0, sodium 142, potassium 4.2, chloride 103, bicarb 25, BUN 9, creatinine 1.0, glucose 135, troponin 0.067, creatine kinase 194. IMAGING: CTA of chest, abdomen, pelvis images reviewed which showed relatively large clot burden in both pulmonary arteries involving some branches, postsurgical changes with surgically absent prostate with no significant fluid within the pelvis. The bladder seems to fill appropriately with catheter in place. ASSESSMENT AND PLAN: Mr. Peacock a 79-year-old who is postoperative from robotic-assisted laparoscopic prostatectomy and bilateral pelvic lymph node dissection and urethral suspension on 06/27/2019. The patient was discharged on postop day 1 with normal vital signs. He had good pain control and was having no significant issues at home until he awoken on Tuesday morning early complaining of shortness of breath and increased heart rate. His heart rate was significantly elevated around 136. Oxygen saturations were in the high 70s and low 80s. Patient called me on the phone. I recommended proceeding to emergency room as I was concerned may have had pulmonary embolus as he has had prior presentations for pulmonary embolisms. The patient was on Xarelto, was scheduled to start it back today. A CT of the chest, abdomen, pelvis was performed which does show bilateral pulmonary emboli which are quite large. The patient has been started on Lovenox by the hospitalist and admitted to the ICU. Continues to be on a fair amount of oxygen. Oxygen saturation remains stable in the low 90s. Denies any increased work of breathing, chest pain, abdominal pain overall he seems to be doing well. All his labs are within normal limits and postsurgical changes around the prostate bed appear to be normal. Talked with him today and I recommend he remained on Lovenox and will follow up the recommendations of the hospitalist. Would keep indwelling catheter in at least until next Tuesday or until patient is more mobile and out of the ICU. Will review pathology when returns and will call and notify him of results. Discussed this at length with the patient and his son today. Will continue to monitor from a urologic standpoint. Please call with questions or concerns. cc: Branden Leos MD MTDD
[2019-06-30] MEDS: LOVENOX SUBQ SCH (19:45)
[2019-07-01] MEDS: ATROVENT NEB INH SCH ×6 (03:02→23:13)
[2019-07-01] MEDS: XOPENEX NEB INH SCH ×6 (03:03→23:13)
[2019-07-01] MEDS: LOVENOX SUBQ SCH ×2 (05:59→18:09)
[2019-07-01 06:27] LABS: BASO# 0.03 X1000 (0.0-0.2); BASO% 0.3 % (0.0-0.8); EOS# 0.13 X1000 (0.0-0.7); EOS% 1.5 % (0.0-10.0); HEMATOCRIT 42.1 % (42.0-52.0); HEMOGLOBIN 13.8 g/dL (14.0-18.0); LYMPH# 1.63 X1000 (1.2-3.4); LYMPH% 18.6 % (20.5-51.1); MCH 29.7 PG (27-31); MCHC 32.8 g/dL (33-37); MCV 90.7 FL (81-99); MONO% 9.1 % (1.7-9.3); MPV 10.4 FL (7.4-10.4); NEUT# 6.17 X1000 (1.4-6.5); NEUT% 70.5 % (42.2-75.2); PLT 115 X1000 (130-400); RBC 4.64 XMIL (4.7-6.1); RDW 13.5 % (11.5-14.5); WBC 8.76 X1000 (4.8-10.8)
[2019-07-01 06:42] LABS: INR 1.35; PROTIME 16.9 Seconds (11.0-16.0)
[2019-07-01 06:46] LABS: AGAP 11; ALB/GLOB RATIO 1.1; ALBUMIN 3.1 g/dL (3.5-5.0); ALKALINE PHOSPHATASE 66 U/L (32-122); BUN 11 mg/dL (8-22); CALCIUM 8.2 mg/dL (8.8-10.2); CHLORIDE 104 mmol/L (98-107); COSMO 277; CREATININE 0.9 mg/dL (0.7-1.2); ESTIMATED GFR > 60; GLUCOSE 99 mg/dL (70-104); GOT 13 U/L (10-34); GPT 9 U/L (10-44); MAGNESIUM 1.9 mg/dL (1.5-2.7); POTASSIUM 4.1 mmol/L (3.5-5.1); SODIUM 139 mmol/L (136-145); TCO2 24 mmol/L (25-35); TOTAL BILIRUBIN 0.72 mg/dL (0.20-1.00)
[2019-07-01 06:57] LABS: PTT 88.7 Seconds (22.3-41.8)
[2019-07-01] MEDS: FOLIC ACID PO SCH (08:51)
[2019-07-01] MEDS: VITAMIN B-12 PO SCH (08:51)
[2019-07-01] MEDS: FISH OIL CONCENTRATE PO SCH (08:51)
[2019-07-01] MEDS: TOPROL XL PO SCH (08:51)
[2019-07-01] MEDS: COLACE PO SCH ×2 (08:51→20:43)
[2019-07-01] MEDS: ASPIRIN PO SCH (08:51)
[2019-07-01] MEDS ORDERED: MILK OF MAGNESIA PO ONE (11:01)
--- NOTE | 2019-07-01 13:40 | HEMO/ONC CONSULTATION ---
DATE: 07/01/2019 REASON FOR CONSULTATION: This is a known patient of ours for the management of recurrent pulmonary embolism. HISTORY OF PRESENT ILLNESS: Mr. Peacock is a 79-year-old male whom we treat in the office for recurrent pulmonary embolism. 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 The patient requires anticoagulation for life. He is on Xarelto daily and very compliant with it. On 06/27/2019, the patient was scheduled for a prostatectomy for the diagnosis of prostate cancer with Dr. Leos. He stopped his Xarelto 3 days prior and has planned to restart at on 06/30/2019. In vice president business & corporate development hours of the , he woke up with severe shortness of breath and rapid heart rate. On arrival to the ER, his heart rate was approximately 135 and his saturations were in the 80s. Imaging revealed bilateral pulmonary emboli with heavy clot burden. He was started on weight-based Lovenox. His Gallardo catheter remains in from his surgery, and Dr. Leos is caring for him in that regard while he is here. PAST MEDICAL HISTORY: 1. Patient has had a pulmonary emboli in 2015 and again in 2016 with a right DVT. 2. Coronary artery disease. No ND. Stent x1 3. Prostate cancer with prostatectomy. 4. Hypertension. SURGICAL HISTORY: 1. Prostatectomy on 06/27/2019. 2. Tip of his middle finger amputation. 3. Right cataract surgery. SOCIAL HISTORY: The patient dips [place] tobacco approximately 1 pack a day. ALLERGIES: Statins cause severe leg cramps. HOME MEDICATION: Aspirin, fish oil, Toprol, vitamin B12, Xarelto, Zioptan eyedrop, Colace, and folic acid. REVIEW OF SYSTEMS: Shortness of breath and rapid heart rate. Otherwise, negative. Vital Signs: Temperature 97 degrees, pulse rate 73, respiratory rate 30, blood pressure 139/70, O2 saturation 99% on nasal cannula at 4 L, is in 0/10 pain PHYSICAL EXAMINATION: General: He is in no acute distress. HEENT: Sclera is anicteric. PERRLA. Oral mucosa is normal. Cardiovascular: Normal S1, S2. Heart rate and rhythm is regular. No lower extremity edema noted. Lungs: Clear auscultation. Respiratory effort is normal Gastrointestinal.: Abdomen is soft, nontender, nondistended. Positive bowel sounds. Neurological: Awake, alert, and oriented x3. No focal motor deficits noted. Skin: Warm dry and dry and intact without ecchymosis or petechiae. LABORATORY: WBCs 8.76, hemoglobin 13.8, hematocrit 42.1, platelet count 115,000. ASSESSMENT AND PLAN: 1. Bilateral pulmonary emboli with heavy clot burden and acute hypoxic respiratory failure. The patient is currently on Lovenox 1 mg/kg q.12 hours and on bedrest. We will continue to monitor the patient closely, and we will follow up with him in the office outpatient. 2. Prostatectomy secondary to prostate cancer. The patient continues to have a Gallardo in place. He is being managed by Dr. Leos. Dictated by VIOLETTE Garcia for Kenny Mendez MD As above. New DVT/PE with heavy clot burden. History of Recurrent DVT/PE on chronic anticoagulation outpatient, recently stopped for surgery. Agree with Lovenox as you are doing. Once stable and ready for discharge, will plan to start Xarelto. Kenny Mendez MD. cc: Kenny Mendez MD [facility]OSPITALLuis Alberto
--- NOTE | 2019-07-01 14:43 | PROGRESS NOTE ---
DATE: 07/01/2019 SUBJECTIVE: The patient is resting comfortably in bed. He has no complaints at this time. He denies having any shortness of breath or chest pain. OBJECTIVE: Vital Signs: Temperature 98.8 degrees, blood pressure 154/87, heart rate 84, respirations 19, O2 saturation is 94% on 4 L nasal cannula. General: This is a chronically ill- appearing, elderly male, lying in bed in no acute distress. Heart: S1, S2 normal. Regular rate and rhythm. Lungs: Coarse breath sounds. Abdomen: Positive bowel sounds. Soft, nontender, nondistended. Extremities: No cyanosis. No calf tenderness. Neurologic: The patient is alert and oriented x4. LABORATORY DATA: White blood cell count 8.7, hemoglobin 13, hematocrit 42, platelets 115,000. INR 1.3. Sodium 139, potassium 4.1, chloride 104, CO2 of 24, BUN 11, creatinine 0.9, glucose 99. Magnesium 1.9. ASSESSMENT AND PLAN: 1. Acute hypoxemic respiratory failure secondary to bilateral pulmonary embolism with heavy clot burden. Continue on anticoagulation and supplemental oxygen. 2. Bilateral pulmonary embolism with an extensive left lower extremity deep vein thrombosis. Continue on full-dose Lovenox. Further recommendations to follow from the director nursery school. The patient is currently on bedrest. 3. Thrombocytopenia. Will continue to monitor this closely while the patient is on Lovenox. Hematology is following. 4. Prostate cancer status post prostatectomy. Stable. Dr. Leos is following. 5. Hypertension. Continue on Toprol-XL. cc: Mary Anne Berg MD [facility]
--- NOTE | 2019-07-01 16:47 | PULMONOLOGY PROGRESS NOTE ---
DATE: 07/01/2019 SUBJECTIVE: The patient is awake and alert. He reports he is "bored." He is without specific complaints. OBJECTIVE: Vital Signs: The patient has been afebrile for the last 24 hours. Blood pressure 135/79, heart rate 78, respiratory rate 28, oxygen saturation 95% on 3 L per nasal cannula. HEENT: Pupils are equal and reactive. Oropharynx appears clear. Neck: Supple. Chest: Reveals good air entry bilaterally without wheezing or rhonchi. Cardiac: S1, S2. Abdomen: Soft. Extremities: Without edema. LABORATORIES: White blood count 8.76, hemoglobin 13.8, platelet count 115,000. Sodium 139, potassium 4.1, chloride 104, bicarbonate 24, BUN 11, creatinine 0.9. IMPRESSION: 79-year-old with 1. Acute hypoxemic respiratory failure. 2. Recurrent pulmonary emboli. 3. Prostate cancer status post prostatectomy. PLAN: 1. Continue anticoagulation. 2. Continue oxygen for hypoxemic respiratory failure. 3. Would keep patient sedentary at least for another 24 hours. cc: Rudy Sawyer MD
[2019-07-02] MEDS: XOPENEX NEB INH SCH ×6 (02:51→22:53)
[2019-07-02] MEDS: ATROVENT NEB INH SCH ×6 (02:51→22:53)
[2019-07-02] MEDS: LOVENOX SUBQ SCH ×2 (05:26→17:49)
--- NOTE | 2019-07-02 06:36 | Diag Imaging Result Doc PS360 ---
EXAM: CHEST-PORTABLE HISTORY: abnormal exam TECHNIQUE: Chest single view COMPARISON: 06/30/2019 FINDINGS: The lungs are well expanded. The heart is mildly prominent. The vessels are not distended. There are no infiltrates. No effusion identified. IMPRESSION: Mild cardiomegaly Electronically signed by Gary Hutchins 07/02/2019 6:34 AM
[2019-07-02 06:45] LABS: BASO# 0.02 X1000 (0.0-0.2); BASO% 0.2 % (0.0-0.8); EOS# 0.18 X1000 (0.0-0.7); EOS% 2.2 % (0.0-10.0); HEMOGLOBIN 13.9 g/dL (14.0-18.0); IMM GRAN# 0.02 X1000 (0.0-0.04); IMM GRAN% 0.2 % (0.0-0.5); LYMPH# 1.63 X1000 (1.2-3.4); LYMPH% 19.7 % (20.5-51.1); MCH 29.3 PG (27-31); MCHC 32.3 g/dL (33-37); MCV 90.5 FL (81-99); MONO# 0.82 X1000 (0.11-0.59); MONO% 9.9 % (1.7-9.3); MPV 10.8 FL (7.4-10.4); NEUT# 5.62 X1000 (1.4-6.5); NEUT% 67.8 % (42.2-75.2); PLT 127 X1000 (130-400); RBC 4.75 XMIL (4.7-6.1); RDW 13.7 % (11.5-14.5); WBC 8.29 X1000 (4.8-10.8)
[2019-07-02 07:16] LABS: AGAP 11; ALB/GLOB RATIO 1.1; ALBUMIN 3.3 g/dL (3.5-5.0); ALKALINE PHOSPHATASE 70 U/L (32-122); BUN 10 mg/dL (8-22); CHLORIDE 100 mmol/L (98-107); COSMO 267; CREATININE 0.8 mg/dL (0.7-1.2); ESTIMATED GFR > 60; GLUCOSE 96 mg/dL (70-104); GOT 15 U/L (10-34); GPT 9 U/L (10-44); MAGNESIUM 2.1 mg/dL (1.5-2.7); POTASSIUM 4.1 mmol/L (3.5-5.1); SODIUM 134 mmol/L (136-145); TCO2 23 mmol/L (25-35); TOTAL BILIRUBIN 1.01 mg/dL (0.20-1.00); TOTAL PROTEIN 6.3 g/dL (6.3-8.3)
--- NOTE | 2019-07-02 07:45 | PROGRESS NOTE ---
DATE: 07/02/2019 SUBJECTIVE: The patient is resting comfortably in bed. No acute events overnight. He is tolerating his nasal cannula. He is not complaining of chest pain or shortness of breath. He is tolerating p.o., good urine output. Pending hematology recommendations. I do believe this patient can start walking today and probably he can be transferred to the [facility] or medical floor but I will wait for hematology recommendations. OBJECTIVE: Vital Signs: Temperature 97.1 degrees, pulse 77, respiratory rate 23, blood pressure 116/52, oxygen saturation 94% on 4 L of nasal cannula. HEENT: Head normocephalic. No trauma. PERRLA. Neck: Supple. No JVD. No masses. Central trachea. Chest: Coarse breath sounds. Abdomen: Soft. Tenderness to palpation at the level of the suprapubic area. He does have a Gallardo catheter. Extremities: No edema. No clubbing. No cyanosis. No calf tenderness. Neurological Examination: The patient is alert. He is oriented x4. No focal deficits. Laboratory: WBC 8.2, hemoglobin 13.9, hematocrit 43, platelets 127,000. Sodium 134, potassium 4.1, chloride 100, bicarbonate 23, BUN 10, creatinine 0.8, glucose 96, calcium 9. AST 15, ALT 9, alkaline phosphatase 70, albumin 3.3. ASSESSMENT AND PLAN: 1. Acute hypoxemic respiratory failure due to bilateral pulmonary embolism with heavy clot burden. He seems to be tolerating the nasal cannula. We will continue with anticoagulation. I will wait for the recommendations of hematology/oncology department. He has a previous history of deep venous thrombosis involving the right deep femoral vein in July 2016. 2. Bilateral pulmonary embolism with an extensive left lower extremity deep venous thrombosis. It has been reported by the previous physician the extensive left lower extremity involvement. We will continue with full dose Lovenox. I will get the vascular lab to report the deep venous thrombosis but I will not change any treatment. Further recommendations to follow from the traffic incident management manager. 3. Thrombocytopenia, stable, better compared with yesterday. We will just monitor. 4. Prostate cancer, status post prostatectomy, stable. Urology department following this patient. 5. Hypertension. Continue with home medications. cc: Tyson Wilcox MD
[2019-07-02] MEDS: FISH OIL CONCENTRATE PO SCH (09:37)
[2019-07-02] MEDS: VITAMIN B-12 PO SCH (09:37)
[2019-07-02] MEDS: TOPROL XL PO SCH (09:37)
[2019-07-02] MEDS: FOLIC ACID PO SCH (09:37)
[2019-07-02] MEDS: ASPIRIN PO SCH (09:37)
[2019-07-02] MEDS: COLACE PO SCH ×2 (09:37→21:28)
[2019-07-02] MEDS ORDERED: BLISTEX MEDICATED BERRY LIP BALM TOP PRN (09:38)
[2019-07-02] MEDS ORDERED: BENADRYL PO ONE (11:34)
--- NOTE | 2019-07-02 14:13 | HEMO/ONC PROGRESS NOTE ---
DATE: 07/02/2019 SUBJECTIVE: Mr. Peacock is a sitting up this morning eating his breakfast in bed. He states he continues to feel better every day. He is anxious to get up out of bed. He had a good night's sleep. He denies any specific complaint. OBJECTIVE: Vital Signs: Temperature 98.2 degrees, pulse rate 82, respiratory rate 22, blood pressure 142/77, O2 saturation 95% on nasal cannula at 4 L. He is in 0/10 pain. PHYSICAL EXAM: General: This is an elderly male in no acute distress. HEENT: Sclerae is anicteric. PERRLA. Oral mucosa is normal. Cardiovascular: Normal S1, S2. Heart rate and rhythm is regular. No lower extremity edema noted. Respiratory: Lung sounds are clear to auscultation. Normal respiratory effort. Gastrointestinal: Abdomen is soft, nontender, and nondistended. Neurologic: Awake, alert and oriented x3. Skin: Warm dry and intact without ecchymosis. LABORATORY: WBCs 8.19, hemoglobin 13.9, hematocrit 43.0, platelet count 127,000, total bilirubin 1.01. RADIOLOGY: Chest x-ray shows cardiomegaly. ASSESSMENT AND PLAN: Discussed with Dr. Mendez 1. Bilateral pulmonary emboli with heavy clot burden and acute respiratory failure. The patient should remain on Lovenox b.i.d. as you are doing. Once he is stable and ready for discharge, he should be converted to Xarelto. It is okay from our standpoint to transfer the patient to a private room with a bedside commode. Otherwise, he needs to stay in bed. Dr. Mendez does not want him walking just yet. We will continue to follow the patient closely and we will follow up with him in the office outpatient. 2. Prostatectomy secondary to prostate cancer. The patient continues to have a Gallardo in place. He is tolerating well. He is being managed by Dr. Leos. Dictated by VIOLETTE Garcia for Kenny Mendez MD cc: Kenny Mendez MD [facility]ALTH PARTNERSLuis Alberto
--- NOTE | 2019-07-02 20:42 | PULMONOLOGY PROGRESS NOTE ---
DATE: 07/02/2019 SUBJECTIVE: The patient is awake, alert, and conversant. He reports he is having no difficulty with his breathing. OBJECTIVE: The patient has been afebrile for the last 24 hours, blood pressure 152/64, heart rate 88, respiratory rate 25, oxygen saturation 100% on 3 L per nasal cannula.HEENT: Pupils are equal and reactive. Oropharynx appears clear. Neck is supple. Chest reveals crackles in the right lung base. Cardiac: S1, S2. Abdomen is soft. Extremities are without edema. LABORATORIES: White blood count 8.29, hemoglobin 13.9, platelet count 127,000 and climbing. Sodium 134, potassium 4.1, chloride 100, bicarbonate 23, BUN 10, creatinine 0.8. IMPRESSION: A 79-year-old with: 1. Acute hypoxemic respiratory failure. 2. Recurrent pulmonary emboli. 3. Prostate cancer status post prostatectomy. PLAN: 1. Continue anticoagulation. From a pulmonary standpoint, he could be transitioned to an oral anticoagulant. 2. Continues incentive spirometry. 3. Wean oxygen as tolerated. cc: Rudy Sawyer MD
[2019-07-03] MEDS: LOVENOX SUBQ SCH (05:10)
[2019-07-03] MEDS: ATROVENT NEB INH SCH ×6 (06:44→23:26)
[2019-07-03] MEDS: XOPENEX NEB INH SCH ×6 (06:44→23:26)
[2019-07-03 07:12] LABS: BASO# 0.04 X1000 (0.0-0.2); BASO% 0.5 % (0.0-0.8); EOS# 0.27 X1000 (0.0-0.7); EOS% 3.3 % (0.0-10.0); HEMATOCRIT 44.3 % (42.0-52.0); HEMOGLOBIN 14.3 g/dL (14.0-18.0); LYMPH% 19.6 % (20.5-51.1); MCH 29.5 PG (27-31); MCHC 32.3 g/dL (33-37); MCV 91.5 FL (81-99); MONO# 0.96 X1000 (0.11-0.59); MONO% 11.8 % (1.7-9.3); MPV 10.4 FL (7.4-10.4); NEUT% 64.8 % (42.2-75.2); PLT 152 X1000 (130-400); RBC 4.84 XMIL (4.7-6.1); RDW 13.9 % (11.5-14.5); WBC 8.17 X1000 (4.8-10.8)
[2019-07-03 07:28] LABS: AGAP 11; BUN 11 mg/dL (8-22); CALCIUM 8.6 mg/dL (8.8-10.2); CHLORIDE 103 mmol/L (98-107); COSMO 275; CREATININE 0.8 mg/dL (0.7-1.2); ESTIMATED GFR > 60; GLUCOSE 97 mg/dL (70-104); POTASSIUM 4.4 mmol/L (3.5-5.1); SODIUM 138 mmol/L (136-145); TCO2 24 mmol/L (25-35)
--- NOTE | 2019-07-03 09:01 | ECHO REPORT ---
ORDER DATE: 06/30/2019 STUDY: Limited echocardiogram. REQUESTING PROVIDER: Hospitalist service. INDICATION: Recurrent pulmonary embolism. SUMMARY OF M-MODE MEASUREMENTS: Could not be obtained. The parasternal views were really very limited. SUMMARY OF 2-DIMENSIONAL IMAGIN. Left ventricular size and function appears to be normal. 2. The right ventricle appears to be enlarged and hypokinetic. 3. The tricuspid valve shows mild degree of regurgitation. 4. The pulmonary pressure is estimated at 46 mmHg. 5. I do not see evidence of pericardial effusion. 6. The aortic valve appears to be grossly normal. 7. The mitral valve also is suboptimally visualized. Clinical correlation is recommended. cc: MD Mary Anne North MD
[2019-07-03] MEDS: COLACE PO SCH ×2 (09:10→20:16)
[2019-07-03] MEDS: ASPIRIN PO SCH (09:10)
[2019-07-03] MEDS: FISH OIL CONCENTRATE PO SCH (09:10)
[2019-07-03] MEDS: VITAMIN B-12 PO SCH (09:10)
[2019-07-03] MEDS: FOLIC ACID PO SCH ×2 (09:11→10:51)
[2019-07-03] MEDS: TOPROL XL PO SCH (09:11)
--- NOTE | 2019-07-03 12:56 | PROGRESS NOTE ---
DATE: 07/03/2019 SUBJECTIVE: This patient is resting comfortably in bed. No acute events overnight. He is still on oxygen, 2 L. He is not complaining of chest pain or shortness of breath. He is tolerating p.o. This patient has been transferred to the medical floor. I will start this patient on Xarelto today in the afternoon. I will try to talk to the associate professor of sociology to see when this patient can actually start walking or can be discharged. She seems to be stable. OBJECTIVE: Vital Signs: Temperature 99 degrees, pulse 73, respiratory rate 18, blood pressure 139/71, oxygen saturation 95% on 2 L of nasal cannula. HEENT: Head normocephalic. No trauma. PERRLA. Neck: Supple. No JVD. No masses. Central trachea. Chest: Decreased breath sounds at the bases. Some scattered crepitus. Abdomen: Soft, nontender, nondistended. No hepatosplenomegaly. Extremities: No edema, no clubbing, no cyanosis. Neurological: The patient is alert. He is oriented x4. No focal deficits. LABORATORY: WBC 8.1, hemoglobin 14.3, hematocrit 44.3, platelets 152,000. Sodium 138, potassium 4.4, chloride 103, bicarbonate 24, BUN 11, creatinine 0.8, glucose 97, calcium 8.6. ASSESSMENT AND PLAN: 1. Acute hypoxemic respiratory failure due to bilateral pulmonary embolism with heavy clot burden. He seems to be tolerating the nasal cannula. I will continue with anticoagulation, but I will stop the Lovenox twice a day and I will put him on Xarelto twice a day 50 mg. I will contact hematology/oncology department to see when this patient can start doing some physical activity. 2. Bilateral pulmonary embolism with an extensive left lower extremity DVT. This has been reported by the previous physician. We will continue with anticoagulation pending final results. 3. Thrombocytopenia, stable. Actually today the platelet count is normal. 4. History of prostate cancer, status post prostate prostatectomy, stable. Urology Department following this patient. Will continue with the Gallardo catheter. 5. Hypertension. Continue home medications. cc: Tyson Wilcox MD
--- NOTE | 2019-07-03 13:05 | HEMO/ONC PROGRESS NOTE ---
DATE: 07/03/2019 SUBJECTIVE: Mr. Peacock is feeling well this morning. He had a very good night's sleep. He denies any pain or shortness of breath. His appetite is good. He is continuing to improve. OBJECTIVE: Vital Signs: Temperature 99 degrees, respiratory rate 73, blood pressure 139/71, O2 saturation 95% on nasal cannula at 2 L. He is in 0/10 pain. General: This is an elderly male in no acute distress. HEENT: Sclerae is anicteric. PERRLA. Oral mucosa is normal. Respiratory: Lung sounds are grossly clear to auscultation. Normal respiratory effort. Gastrointestinal: Abdomen is soft, nontender, and nondistended. Neurological: Awake, alert, and oriented x3. No focal motor deficits. Skin: Warm, dry, and intact, without ecchymosis or petechiae. Extremities: No lower extremity edema noted. LABORATORY DATA: WBCs 8.17, hemoglobin 14.3, hematocrit 44.3, platelet count 152,000. ASSESSMENT AND PLAN: discussed Dr. Mendez. 1. Bilateral pulmonary emboli with heavy clot burden and acute respiratory failure. The patient can be converted over to oral anticoagulation. From our standpoint, he is okay to go home tomorrow. He continues to improve. We will follow up with him in the office in 2 weeks. 2. Prostatectomy for prostate cancer. The patient is continuing to be managed per Dr. Leos. Dictated by VIOLETTE Garcia for Kenny Mendez MD cc: MD SHELTON Todd
[2019-07-03] MEDS: MIRALAX PO SCH (15:07)
[2019-07-03] MEDS: XARELTO PO SCH (17:14)
[2019-07-03] MEDS ORDERED: ELIQUIS PO SCH (18:00)
--- NOTE | 2019-07-03 20:54 | PULMONOLOGY PROGRESS NOTE ---
DATE: 07/03/2019 SUBJECTIVE: The patient is awake, alert and conversant. He is tolerating p.o. intake. He is having bowel movements. He has no specific complaints today. OBJECTIVE: BP 139/71, heart rate 73, respiratory rate 16, oxygen saturation 97% on 2 L per nasal cannula.HEENT: Pupils are equal and reactive. Oropharynx appears clear. Neck is supple. Chest reveals good air entry bilaterally without wheezing or rhonchi. Cardiac exam: S1, S2. Abdomen is soft. Extremities are unchanged. LABORATORY DATA: White blood count 8.17, hemoglobin 14.3, platelet count 152,000. Sodium 138, potassium 4.4, chloride 103, bicarbonate 24, BUN 11, creatinine 0.8. IMPRESSION: A 79-year-old with: 1. Recurrent pulmonary emboli. 2. Acute hypoxemic respiratory failure. 3. Status post prostatectomy for prostate cancer. DISCUSSION: This is a 79-year-old with problems outlined above. He remains hemodynamically stable. He will approach 96 hours of anticoagulation tomorrow morning. PLAN: Mobilize the patient tomorrow morning. If he does well in the morning, he could be discharged in the afternoon. He is aware that he will need lifelong anticoagulation. cc: Rudy Sawyer MD
[2019-07-04] MEDS: XOPENEX NEB INH SCH ×3 (03:14→11:35)
[2019-07-04] MEDS: ATROVENT NEB INH SCH ×3 (03:14→11:34)
[2019-07-04 07:03] LABS: BASO# 0.03 X1000 (0.0-0.2); BASO% 0.4 % (0.0-0.8); EOS# 0.27 X1000 (0.0-0.7); EOS% 3.2 % (0.0-10.0); HEMATOCRIT 44.3 % (42.0-52.0); HEMOGLOBIN 14.2 g/dL (14.0-18.0); LYMPH# 1.48 X1000 (1.2-3.4); LYMPH% 17.4 % (20.5-51.1); MCH 29.3 PG (27-31); MCHC 32.1 g/dL (33-37); MCV 91.3 FL (81-99); MONO# 0.91 X1000 (0.11-0.59); MONO% 10.7 % (1.7-9.3); MPV 10.3 FL (7.4-10.4); NEUT# 5.84 X1000 (1.4-6.5); NEUT% 68.3 % (42.2-75.2); PLT 157 X1000 (130-400); RBC 4.85 XMIL (4.7-6.1); RDW 13.8 % (11.5-14.5); WBC 8.53 X1000 (4.8-10.8)
[2019-07-04 07:50] VITALS: BP 135/64
[2019-07-04] MEDS: TOPROL XL PO SCH (08:27)
[2019-07-04] MEDS: FISH OIL CONCENTRATE PO SCH (08:27)
[2019-07-04] MEDS: ASPIRIN PO SCH (08:27)
[2019-07-04] MEDS: COLACE PO SCH (08:27)
[2019-07-04] MEDS: XARELTO PO SCH (08:27)
[2019-07-04] MEDS: VITAMIN B-12 PO SCH (08:28)
[2019-07-04] MEDS: MIRALAX PO SCH (08:29)
[2019-07-04] MEDS ORDERED: FOLIC ACID PO SCH (09:00)
[2019-07-04] MEDS ORDERED: HYDROCORTISONE 1% CREAM TOP PRN (11:08)
--- NOTE | 2019-07-04 13:56 | DISCHARGE SUMMARY ---
ADMISSION DATE: 06/30/2019 DISCHARGE DATE: 07/04/2019 DISCHARGE DIAGNOSES: 1. Bilateral pulmonary emboli with heavy clot burden and acute hypoxemic respiratory failure. 2. Acute hypoxemic respiratory failure due to #1. 3. Prostatectomy secondary to prostate cancer. 4. History of coronary artery disease. 5. Hypertension. PROCEDURES PERFORMED: Chest x-ray dated 06/30/2019, impression: Low lung volumes and mildly prominent cardiac silhouette, no definite acute pathology otherwise. Abdomen and pelvis CT scan dated 06/30/2019, impression: Bilateral acute pulmonary emboli with a heavy clot burden, trace left pleural effusion and bibasilar atelectasis, postsurgical changes related to a very recent prostatectomy. Echocardiogram dated 06/30/2019, summary: Pulmonary pressure is estimated at 46 mmHg. Left ventricular size and function appears to be normal. The right ventricle appears to be enlarged and hypokinetic. Chest x-ray dated 07/02/2019, impression: Mild cardiomegaly. CONSULT: Hematology Oncology Department Dr. Mendez, Urology Department Branden Wang, and Pulmonary Department, Dr. Sawyer. HOSPITAL COURSE: A 79-year-old male with a past medical history of pulmonary embolism back in 2014 and again in 2016, along with DVT on the right leg, also history of coronary artery disease and cardiac stent, hypertension. He has been on Xarelto and according to him, he has been off Xarelto for a few days, I believe between 5 to 7 days and had a prostatectomy done by Dr. Leos on 06/27/2019, he was supposed to start his Xarelto back the day of admission, but he woke up with shortness of breath and felt like his heart was beating fast, he was admitted on 06/30/2019, he had at home an oxygen saturation sensor and he noted that it was between 79 and 80% and his heart rate was elevated at 135, they brought this patient to the hospital. He was hypoxemic and tachycardic. CT showed bilateral pulmonary emboli with a heavy clot burden so we started this patient on Lovenox. He was in the ICU due to these extensive lesions, also a lower extremity ultrasound showed a left deep femoral vein DVT, he was evaluated by Pulmonary Department and also he was evaluated by Hematology/Oncology Department, we did stop the Lovenox twice a day. We put him on Xarelto as recommended by Dr. Mendez, he seems to be stable. He will be discharged today. We did a home O2 evaluation and he will need to go home with oxygen, we contacted the [facility]rology [facility] and they recommended to keep the Gallardo in and follow up with them next Tuesday, in 5 days to remove the Gallardo and evaluate this patient. Dr. Mendez has recommended and I have instructed the patient to go home with minimal activity, he seems to understand and the was at the bedside when I explained to them the whole situation. PHYSICAL EXAMINATION: Temperature 98.2 degrees, pulse 76, respiratory rate 18, blood pressure 135/64, oxygen saturation 96% on 2 L of nasal cannula. HEENT: Head normocephalic, no trauma. PERRLA. Neck: Is supple. No JVD. No masses. Central trachea. Chest: Coarse breath sounds mostly at the bases. Abdomen: Soft, nontender, nondistended. No hepatosplenomegaly. Some discomfort at the level of the suprapubic area. He does have a Gallardo catheter. He does have a Gallardo catheter. Extremities: No edema, no clubbing. No cyanosis. Neurological: Patient is alert and oriented x3. No focal deficits. LABORATORY: WBC 8.5, hemoglobin 14.2, hematocrit 44.3, platelet count 157,000. DISCHARGE MEDICATIONS: Vitamin C 250 mg p.o. daily, aspirin 81 mg p.o. daily, vitamin B12 1000 mcg p.o. daily, Colace 100 mg p.o. b.i.d., folic acid 1 mg p.o. daily, metoprolol 50 mg p.o. daily, fish oil 1400 mg soft gel 1 p.o. daily, MiraLAX 17 g p.o. daily, Xarelto 15 mg twice a day for 20 more days and then 20 mg p.o. daily, Zioptan 0.0015% eyedrops daily. TIME DISCHARGING THIS PATIENT: 30 minutes. cc: Tyson Wilcox MD
--- NOTE | 2019-07-04 17:04 | HEMO/ONC PROGRESS NOTE ---
DATE: 07/04/2019 SUBJECTIVE: Mr. Peacock is a feeling very well this morning. He is having his breakfast. He is anxious to get home. He has no complaints. He has had no significant events overnight. OBJECTIVE: Vital Signs: Temperature 98.2 degrees, pulse rate 76, respiratory rate 18, blood pressure 135/64, O2 saturation 96% on nasal cannula at 2 L. He is in 0/10 pain. General: The patient is in no acute distress today. HEENT: Sclera is anicteric. PERRLA. Oral mucosa is normal. Respiratory: Lungs are clear to auscultation. Normal respiratory effort. Cardiovascular: Normal S1, S2. Heart rate and rhythm regular. Gastrointestinal: Abdomen is soft, nontender, nondistended. Appetite is good. Bowel sounds are positive. Neurological: Awake, alert, oriented x3. No focal motor deficits. Skin: Warm, dry, and intact. The patient does have a heat rash to his back, red, macule, splotchy with itching. Extremities: No lower extremity edema noted. LABORATORY DATA: WBC is 8.53, hemoglobin 14.2, hematocrit 44.3, platelet count 157,000. ASSESSMENT AND PLAN: 1. Bilateral pulmonary emboli with heavy clot burden and acute respiratory failure. The patient has been converted over to oral anticoagulation. He is going to be discharged today. He feels well. He has no shortness of breath. He has gotten up and began ambulating some. He does continue to improve. We will follow up with him in the office in the next 2 weeks. 2. Prostatectomy for prostate cancer. The patient will continue to be managed and follow up with Dr. Leos. Dictated by VIOLETTE Garcia for Kenny Mendez MD cc: Kenny Mendez MD [facility]
--- NOTE | 2019-07-05 15:01 | Extremity Venous Study ---
PROCEDURE NAME: Venous U/S Bilateral Legs - 06/30/2019 PROCEDURE: Bilateral lower extremity venous duplex and color flow imaging study using the [employer] vivid E9 ultrasound system with a 9 L-D transducer. REFERRING PHYSICIAN: Dr. Berg. IDENTIFICATION: A 79-year-old male. FIRE REGULATOR: Sonya Hallman RVT. INDICATION: Pulmonary embolus. FINDINGS: The right common femoral vein and its branches, deep and superficial femoral veins were satisfactorily imaged. They had flow through them and were compressible. Right popliteal vein and deep veins below the right knee were all compressible and had flow through them. The superficial veins the right lower extremity were compressible throughout their length. The left common femoral vein and its branches, the deep and superficial femoral veins were satisfactorily imaged. There was evidence of an acute deep venous thrombosis involving the left deep femoral vein that appeared to be partially mobile at the bifurcation of the deep femoral vein and the common femoral vein. This thrombosis did not extend distally into the left popliteal vein, which was compressible and had flow through it. The small veins below the left knee were compressible, as were the superficial veins of the left lower extremity. INTERPRETATION: Acute deep venous thrombosis involving the left deep femoral vein. cc: MD Virgen Oakes CRNP
== END 2019-07-04 14:08 | disposition home or self-care (01) | DRG 175 ==
LOC: SUATTDRO → ED 02:50 → SUATTDRO 08:44 → ICU 08:44 → 3N 07-02 14:46
PROVIDERS: ATTEND Internal Medicine